=== PATIENT | female | born 1970 | race Caucasian/White ===

== ENCOUNTER 2024-06-23 06:57 | Inpatient (IN) | payer MEDICAID ==
[~2024-06-23] VITALS: Ht 152.4 cm; Wt 81.6 kg
[2024-06-23 07:38] LABS: BASOPHILS % 0.7 % (0.0-2.0); HEMATOCRIT. 37.8 % (36.0-48.0); HEMOGLOBIN. 12.1 g/dL (12.0-16.0); LYMPHOCYTES % 37.5 % (20.0-50.0); MEAN CORPUSCULAR HEMOGLOBIN 26.4 pg (28.0-32.0); MEAN CORPUSCULAR HGB CONC 31.9 g/dL (31.0-37.0); MEAN CORPUSCULAR VOLUME 82.9 fL (81.0-99.0); MEAN PLATELET VOLUME 8.5 fl (7.4-10.4); NEUTROPHILS % 54.8 % (40.0-76.0); PLATELET 263 x1000/uL (130-400); RED BLOOD CELL COUNT 4.57 mill/uL (4.2-5.4); RED CELL DISTRIBUTION WIDTH 17.6 % (11.6-14.6); WHITE BLOOD COUNT 6.1 x1000/uL (4.5-11.0)
[2024-06-23 07:41] LABS: CHLORIDE 109 mEq/L (98-107); POTASSIUM 3.9 mEq/L (3.5-5.1); SODIUM 145 mEq/L (136-145)
[2024-06-23 07:42] LABS: CARBON DIOXIDE 28 mEq/L (21-32)
[2024-06-23 07:43] LABS: CALCIUM 9.6 mg/dL (8.7-10.4)
[2024-06-23 07:46] LABS: INR 0.9; PROTHROMBIN TIME 10.4 sec (9.6-11.0)
[2024-06-23 07:47] LABS: CREATININE 0.7 mg/dL (0.6-1.0); GLUCOSE 195 mg/dL (70-105)
[2024-06-23 07:48] LABS: UREA NITROGEN BLOOD 12 mg/dL (9-23)
[2024-06-23] MEDS: SODIUM CHLORIDE 0.9% 500 ML IV ONE (07:54)
[2024-06-23] MEDS: ONDANSETRON HCL 4MG/2ML INJ IV SCH (07:54)
[2024-06-23] MEDS: IOHEXOL-300 100 ML BOTTLE ONE (09:15)
[2024-06-23] MEDS ORDERED: ONDA4TAB11 PO (09:32)
[2024-06-23] MEDS ORDERED: DICY20TA2 MT (09:32)
[2024-06-23] MEDS ORDERED: MECLIZINE 25MG TABLET PO ONE (09:45)
[2024-06-23] MEDS: MECLIZINE 12.5MG TABLET PO NR (10:31)
[2024-06-23] MEDS: PANTOPRAZOLE SODIUM 40 MG/VIAL IV SCH (11:44)
[2024-06-23 16:06] VITALS: BP 148/72; PULSE 61; RESP 16; TEMP 36.3624
[2024-06-23] MEDS: ONDANSETRON HCL 4MG/2ML INJ IV PRN (16:30)
[2024-06-23 17:00] VITALS: BP 148/72; PULSE 61; RESP 16; TEMP 36.33624; O2SAT 99
[2024-06-23] MEDS ORDERED: ONDANSETRON HCL 4MG/2ML INJ IV PRN (17:45)
[2024-06-23] MEDS ORDERED: CLONIDINE 0.1MG TABLET PO PRN (17:45)
[2024-06-23] MEDS ORDERED: ACETAMINOPHEN 325MG TABLET PO PRN (17:45)
[2024-06-23] MEDS ORDERED: ZOLPIDEM TARTRATE 5MG TABLET PO PRN (17:45)
[2024-06-23] MEDS ORDERED: HYDROCODONE/ACETAMINOPHEN 5/325MG TABLET PO PRN (17:45)
[2024-06-23] MEDS ORDERED: DEXTROSE 50% WATER 50ML SYRINGE IV PRN (17:45)
[2024-06-23] MEDS: PNEUMOCOCCAL 23-VAL P-SAC VAC 0.5 ML IM ONE (17:45)
[2024-06-23] MEDS: ENOXAPARIN 40MG/0.4ML SYR SUBCUT SCH (18:00)
[2024-06-23] MEDS: SODIUM CHLORIDE 0.9% 1,000 ML IV SCH (19:21)
[2024-06-23] MEDS: METOCLOPRAMIDE HCL 10MG/2ML VIAL IV SCH (19:21)
[2024-06-23] MEDS: MECLIZINE 25MG TABLET PO SCH (19:22)
[2024-06-23 20:00] VITALS: BP 120/49; PULSE 67; RESP 21; TEMP 36.28068; O2SAT 99
[2024-06-23] MEDS: BLOOD SUGAR DIAGNOSTIC STRIP TEST SCH (20:50)
[2024-06-23] MEDS: INSULIN LISPRO 100 UNITS/ML SUBCUT SCH (20:51)
[2024-06-23 22:41] LABS: CREATINE KINASE MB FRACTION < 0.5 ng/mL (0.5-3.6)
[2024-06-23 22:42] LABS: CREATINE KINASE 30 IU/L (34-145); TROPONIN I HIGH SENSITIVITY 4 ng/L (3.0-34)
[2024-06-24] VITALS: BP 130/60; PULSE 54; RESP 19; TEMP 36.16956; O2SAT 97
[2024-06-24 04:00] VITALS: BP 124/50; PULSE 70; RESP 18; TEMP 36.16956; O2SAT 98
[2024-06-24] MEDS ORDERED: SUCR1ORA15 (05:36)
[2024-06-24] MEDS ORDERED: ATOR40TA70 PO (05:36)
[2024-06-24] MEDS ORDERED: EMPA10TA PO (05:36)
[2024-06-24] MEDS ORDERED: PANT40TA51 PO (05:36)
[2024-06-24] MEDS ORDERED: LEVO125T8 PO (05:36)
[2024-06-24] MEDS ORDERED: DOCU-150 PO (05:36)
[2024-06-24] MEDS ORDERED: HYDR50TA54 PO (05:36)
[2024-06-24] MEDS ORDERED: FLUO10CA28 PO (05:36)
[2024-06-24] MEDS ORDERED: GABA-529 PO (05:36)
[2024-06-24] MEDS ORDERED: FLUT16SP15 INH (05:36)
[2024-06-24 08:00] VITALS: BP 121/54; PULSE 58; RESP 17; TEMP 36.72516; O2SAT 100
[2024-06-24 08:19] LABS: CARBON DIOXIDE 26 mEq/L (21-32); CHLORIDE 111 mEq/L (98-107); POTASSIUM 3.5 mEq/L (3.5-5.1); SODIUM 142 mEq/L (136-145)
[2024-06-24 08:20] LABS: CALCIUM 9.2 mg/dL (8.7-10.4)
[2024-06-24 08:22] LABS: CREATINE KINASE MB FRACTION < 0.5 ng/mL (0.5-3.6)
[2024-06-24 08:23] LABS: TROPONIN I HIGH SENSITIVITY 5 ng/L (3.0-34)
[2024-06-24 08:24] LABS: CREATINE KINASE 33 IU/L (34-145); CREATININE 0.6 mg/dL (0.6-1.0)
[2024-06-24 08:25] LABS: GLUCOSE 101 mg/dL (70-105); UREA NITROGEN BLOOD 7 mg/dL (9-23)
[2024-06-24 08:26] LABS: BASOPHILS % 0.5 % (0.0-2.0); EOSINOPHILS % 0.8 % (0.0-5.0); HEMATOCRIT. 35.4 % (36.0-48.0); HEMOGLOBIN. 11.1 g/dL (12.0-16.0); LYMPHOCYTES % 44.1 % (20.0-50.0); MEAN CORPUSCULAR HEMOGLOBIN 26.4 pg (28.0-32.0); MEAN CORPUSCULAR HGB CONC 31.5 g/dL (31.0-37.0); MEAN CORPUSCULAR VOLUME 83.8 fL (81.0-99.0); MEAN PLATELET VOLUME 9.2 fl (7.4-10.4); MONOCYTES % 7.1 % (2.0-8.0); NEUTROPHILS % 47.5 % (40.0-76.0); PLATELET 247 x1000/uL (130-400); RED BLOOD CELL COUNT 4.22 mill/uL (4.2-5.4); RED CELL DISTRIBUTION WIDTH 18.1 % (11.6-14.6); WHITE BLOOD COUNT 4.9 x1000/uL (4.5-11.0)
[2024-06-24 10:44] LABS: CLARITY URINE CLEAR (CLEAR); COLOR URINE YELLOW (YELLOW); GLUCOSE URINE 3+ (NEGATIVE); KETONES URINE NEGATIVE (NEGATIVE); LEUKOCYTE ESTERASE URINE NEGATIVE (NEGATIVE); NITRITE URINE NEGATIVE (NEGATIVE); OCCULT BLOOD URINE NEGATIVE (NEGATIVE); PH URINE 5.5 (4.5-8.0); PROTEIN URINE NEGATIVE (NEGATIVE); SPECIFIC GRAVITY URINE 1.022 (1.005-1.030)
[2024-06-24 11:13] LABS: SQUAMOUS EPITHELIAL CELL URINE 1+ /lpf (RARE/1+)
[2024-06-24 11:14] LABS: MUCUS URINE TRACE /lpf (< = 2+)
[2024-06-24 11:15] LABS: BACTERIA URINE TRACE; RBC URINE 0-2 /hpf (0-2); WBC URINE 0-2 /hpf (0-2)
[2024-06-24 12:00] VITALS: BP 128/56; PULSE 60; RESP 18; TEMP 36.61404; O2SAT 96
[2024-06-24 12:06] LABS: *AMPHETAMINES SCREEN URINE NEGATIVE (NEGATIVE); *BARBITURATES SCREEN URINE NEGATIVE (NEGATIVE); *BENZODIAZEPINES SCREEN URINE NEGATIVE (NEGATIVE); *COCAINE SCREEN URINE NEGATIVE (NEGATIVE); METHADONE URINE SCREEN NEGATIVE (NEGATIVE)
[2024-06-24 12:07] LABS: OPIATES URINE SCREEN NEGATIVE (NEGATIVE); PHENCYCLIDINE URINE SCREEN NEGATIVE (NEGATIVE)
[2024-06-24 12:08] LABS: CANNABINOID URINE SCREEN NEGATIVE (NEGATIVE); ECSTASY MDMA SCREEN URINE NEGATIVE (NEGATIVE)
[2024-06-24] MEDS ORDERED: METO5TAB86 MT (12:11)
[2024-06-24] MEDS ORDERED: MECL-115 PO (12:11)
[2024-06-24 13:32] VITALS: BP 128/56; PULSE 60; TEMP 97.9; O2SAT 96
== END 2024-06-24 14:15 | disposition home or self-care (01) | DRG 252 ==
LOC: ER 07:50 → 5WST 09:40 → EDBEDREQSVC 09:43 → EDBEDREQ 09:43 → EDBEDREQTM 09:43 → 7EST 17:46
PROVIDERS: ADMIT Internal Medicine; ATTEND Internal Medicine
DX: K91.89 Other postprocedural complications and disorders of digestive system (principal); E11.9 Type 2 diabetes mellitus without complications; H81.13 Benign paroxysmal vertigo, bilateral; I10 Essential (primary) hypertension; K31.84 Gastroparesis; Z90.49 Acquired absence of other specified parts of digestive tract; Z98.84 Bariatric surgery status; Z79.4 Long term (current) use of insulin; Y83.9 Surgical procedure, unspecified as the cause of abnormal reaction of the patient, or of later complication, without mention of misadventure at the time of the procedure
CPT/HCPCS: 36415; 74177; 80048; 80305; 81003; 82550; 82553; 82962; 83036; 84484; 85025; 99285; J1650; J2405; J2470; J2765; J7030; J8597; Q9967